=== PATIENT | female | born 1960 | race Caucasian/White ===

== ENCOUNTER 2020-08-13 15:01 | Emergency (ER) | payer OTHER ==
[~2020-08-13] VITALS: Ht 162.6 cm; Wt 61.4 kg
[2020-08-13 15:35] LABS: BASOPHILS % (AUTO) 0.4 % (0-1); EOSINOPHILS # (AUTO) 0.5 X10'3 (0-0.9); EOSINOPHILS % (AUTO) 6.3 % (0-6); HEMATOCRIT 37.8 % (35.0-45.0); HEMOGLOBIN 12.7 g/dl (12.0-16.0); LYMPHOCYTES # (AUTO) 2.7 X10'3 (1.1-4.8); LYMPHOCYTES % (AUTO) 33.1 % (21-51); MEAN CORPUSCULAR HEMOGLOBIN 31.3 PG (27.0-31.0); MEAN CORPUSCULAR HGB CONC 33.7 g/dL (33.0-36.5); MEAN CORPUSCULAR VOLUME 92.8 FL (78-98); MEAN PLATELET VOLUME 7.6 FL (7.4-10.4); MONOCYTES # (AUTO) 0.7 X10'3 (0-0.9); MONOCYTES % (AUTO) 9.1 % (2-12); NEUTROPHILS # (AUTO) 4.2 X10'3 (1.8-7.7); NEUTROPHILS % (AUTO) 51.1 % (42-75); PLATELET COUNT 223 X10'3 (140-440); RED BLOOD COUNT 4.07 X10'6 (4.20-5.60); RED CELL DISTRIBUTION WIDTH 13.2 % (11.5-14.5); WHITE BLOOD COUNT 8.2 X10'3 (4.5-11.0)
[2020-08-13 15:49] LABS: ALANINE AMINOTRANSFERASE 26 U/L (12-78); ALBUMIN 3.6 G/DL (3.4-5.0); ALKALINE PHOSPHATASE 77 IU/L (46-116); ANION GAP 11 (8-16); ASPARTATE AMINO TRANSFERASE 21 U/L (10-37); BILIRUBIN,TOTAL 0.3 MG/DL (0.1-1.0); BLOOD UREA NITROGEN 11 MG/DL (7-18); BUN/CREATININE RATIO 10.7 (6.6-38.0); CALCIUM 8.6 MG/DL (8.5-10.1); CHLORIDE 101 MMOL/L (99-107); CREATININE 1.03 MG/DL (0.40-0.90); GLUCOSE 92 MG/DL (70-104); PARTIAL THROMBOPLASTIN TIME 30 SECONDS (22-32); POTASSIUM 3.9 MMOL/L (3.5-5.1); SODIUM 137 MMOL/L (135-145); TOTAL CARBON DIOXIDE 25.1 MMOL/L (24-32); TOTAL PROTEIN 7.1 G/DL (6.4-8.2); eGFR 54 ML/MIN
[2020-08-13 15:58] LABS: MAGNESIUM 1.8 MG/DL (1.5-2.4)
[2020-08-13] MEDS ORDERED: iohexol 350MG/ML 100ml bottle IV ONE (16:56)
--- NOTE | 2020-08-13 18:25 | NUR ---
Patient resting in stretcher with family at bedside. States dizziness resolved at this time while laying down. No needs or requests at this time.
[2020-08-13 18:40] VITALS: BP 136/80
== END 2020-08-13 18:42 | disposition home or self-care (01) ==
LOC: ER 15:01
DX: R42 Dizziness and giddiness (principal); M54.2 Cervicalgia; M79.602 Pain in left arm; W19.XXXA Unspecified fall, initial encounter; Y93.89 Activity, other specified; Y92.89 Other specified places as the place of occurrence of the external cause; Y99.8 Other external cause status
CPT/HCPCS: 36415; 70450; 70496; 70498; 71045; 80053; 83735; 83880; 84484; 85025; 85610; 85730; 93005; 99285; Q9967